=== PATIENT | female | born 1970 | race Hispanic/Latino ===

== ENCOUNTER 2020-10-28 11:02 | Emergency (ER) | payer BC ==
[2020-10-28 11:39] LABS: Absolute Lymphocytes (CBC) 2.2 K/uL (0.7-4.9); Basophils % 0.4 % (0-1.3); Hematocrit 37.6 % (36.0-45.0); Lymphocytes % 20.6 % (15.3-44.8); MPV 7.4 fL (7.6-11.3); RBC Red Blood Cell Count 4.63 M/uL (3.86-4.86)
[2020-10-28] MEDS ORDERED: NA CHLORIDE 0.9% 1,000 ML ONE (11:50)
[2020-10-28] MEDS ORDERED: KETOROLAC 30 MG/ML INJ ONE (11:50)
[2020-10-28] MEDS ORDERED: ONDANSETRON 4 MG/2 ML VIAL ONE (11:50)
[2020-10-28 11:54] LABS: ALT/SGPT 81 U/L (12-78); AST/SGOT 27 U/L (15-37); Albumin 3.5 g/dL (3.4-5.0); Alkaline Phosphatase 133 U/L (45-117); BUN Blood Urea Nitrogen 10 mg/dL (7-18); Bicarbonate 32 mmol/L (21-32); Bilirubin Direct 0.1 mg/dL (0-0.2); Bilirubin Total 0.4 mg/dL (0.2-1.0); Glucose Level 116 mg/dL (74-106); Lipase 68 U/L (73-393); Protein, Total 7.4 g/dL (6.4-8.2); Sodium Level 142 mmol/L (136-145)
--- NOTE | 2020-10-28 12:19 | RAD REPORT ---
EXAM DESCRIPTION: CTAbdomen Pelvis W Contrast - 10/28/2020 11:57 am CLINICAL HISTORY: Abdominal pain. ABD PAIN COMPARISON: No comparisons TECHNIQUE: Biphasic CT imaging of the abdomen and pelvis was performed with 100 ml non-ionic IV cont rast. All CT scans are performed using dose optimization technique as appropriate and may include automated exposure control or mA/KV adjustment according to patient size. FINDINGS: The lung bases are clear. The liver, spleen, pancreas, adrenal glands and kidneys are within normal limits. No bowel obstruction, free air, free fluid or abscess. The appendix is normal. No evidence of signi ficant lymphadenopathy. No suspicious bony findings. 9 cm right adnexal cyst is noted. IMPRESSION: 9 cm right adnexal cyst is present. This is presumably related to the right ovary. Recom mend follow-up pelvic ultrasound for further evaluation.
--- NOTE | 2020-10-28 12:22 | EDPHYS ---
Physician Documentation [facility] Name: Matilda Aguilar Age: 50 yrs Sex: Female : 1970 Arrival Date: 10/28/2020 Time: 11:04 Bed 15 Private MD: [facility] ED Physician Lc Mayers HPI: 10/28 11:55 This 50 yrs old Female presents to ER via Ambulatory with complaints of kb Abdominal Pain. 11:55 The patient presents with abdominal pain. Onset: The symptoms/episode began/occurred 3 kb day(s) ago. The symptoms do not radiate. Associated signs and symptoms: none. The symptoms are described as intermittent. Modifying factors: The symptoms are alleviated by nothing, the symptoms are aggravated by nothing. Severity of pain: At its worst the pain was moderate in the emergency department the pain is unchanged. The patient has not experienced similar symptoms in the past. The patient has not recently seen a physician. Pt reports left abd pain for 3 days.. Historical: - Allergies: :28 No Known Allergies; aa5 - PMHx: 11:28 Diabetes - NIDDM; High Cholesterol; Hypertension; aa5 - PSHx: :28 None; aa5 - Immunization history:: Adult Immunizations unknown. - Social history:: Smoking status: Patient reports the use of cigarette tobacco products, denies chronic smoking, but will smoke occasionally. ROS: 11:54 Constitutional: Negative for fever, chills, and weight loss, Cardiovascular: Negative kb for chest pain, palpitations, and edema, Respiratory: Negative for shortness of breath, cough, wheezing, and pleuritic chest pain, Back: Negative for injury and pain, : Negative for injury, bleeding, discharge, and swelling, MS/Extremity: Negative for injury and deformity, Skin: Negative for injury, rash, and discoloration, Neuro: Negative for headache, weakness, numbness, tingling, and seizure. 11:54 Abdomen/GI: Positive for abdominal pain, Negative for nausea, vomiting, and diarrhea. Exam: 11:54 Constitutional: This is a well developed, well nourished patient who is awake, alert, kb and in no acute distress. Head/Face: Normocephalic, atraumatic. Chest/axilla: Normal chest wall appearance and motion. Nontender with no deformity. No lesions are appreciated. Cardiovascular: Regular rate and rhythm with a normal S1 and S2. No gallops, murmurs, or rubs. Normal PMI, no JVD. No pulse deficits. Respiratory: Lungs have equal breath sounds bilaterally, clear to auscultation and percussion. No rales, rhonchi or wheezes noted. No increased work of breathing, no retractions or nasal flaring. Skin: Warm, dry with normal turgor. Normal color with no rashes, no lesions, and no evidence of cellulitis. MS/ Extremity: Pulses equal, no cyanosis. Neurovascular intact. Full, normal range of motion. Neuro: Awake and alert, GCS 15, oriented to person, place, time, and situation. Cranial nerves II-XII grossly intact. Motor strength 5/5 in all extremities. Sensory grossly intact. Cerebellar exam normal. Normal gait. 11:54 Abdomen/GI: Inspection: abdomen appears normal, Bowel sounds: normal, in all quadrants, Palpation: soft, in all quadrants, moderate abdominal tenderness, in the left lower quadrant. Vital Signs: 11:15 BP 149 / 84; Pulse 64; Resp 18 S; Temp 98.6(O); Pulse Ox 100% on R/A; Weight 113.4 kg aa5 (R); Height 5 ft. 2 in. (157.48 cm) (R); Pain 10/10; 12:18 BP 118 / 53; Pulse 55; Resp 17 S; Pulse Ox 100% on R/A; jd3 13:28 BP 112 / 65; Pulse 59; Resp 18 S; Pulse Ox 100% on R/A; Pain 5/10; aa5 11:15 Body Mass Index 45.73 (113.40 kg, 157.48 cm) aa5 MDM: 11:15 Patient medically screened. kb 11:54 Data reviewed: vital signs, nurses notes. Data interpreted: Pulse oximetry: on room air kb is 100 %. Interpretation: normal. 12:21 Counseling: I had a detailed discussion with the patient and/or guardian regarding: the kb historical points, exam findings, and any diagnostic results supporting the discharge/admit diagnosis, lab results, radiology results, the need for outpatient follow up, a family practitioner, to return to the emergency department if symptoms worsen or persist or if there are any questions or concerns that arise at home. 10/28 11:20 Order name: Basic Metabolic Panel; Complete Time: 11:54 kb 10/28 11:20 Order name: CBC with Diff; Complete Time: 11:44 kb 10/28 11:20 Order name: Hepatic Function; Complete Time: 11:54 kb 10/28 11:20 Order name: Lipase; Complete Time: 11:54 kb 10/28 11:52 Order name: Urine Dipstick--Ancillary (enter results); Complete Time: 12:25 em1 10/28 11:52 Order name: Urine --Ancillary (enter results); Complete Time: 12:25 em1 10/28 11:20 Order name: IV Saline Lock; Complete Time: 11:30 kb 10/28 11:20 Order name: Labs collected and sent; Complete Time: 11:30 kb 10/28 11:20 Order name: Urine Dipstick-Ancillary (obtain specimen); Complete Time: 11:48 kb 10/28 11:20 Order name: CT Abd/Pelvis - IV Contrast Only; Complete Time: 12:21 kb Administered Medications: 11:42 Drug: NS 0.9% 1000 ml Route: IV; Rate: 1000 ml; Site: right antecubital; jd3 13:28 Follow up: IV Status: Completed infusion; IV Intake: 1000ml aa5 11:42 Drug: Zofran (Ondansetron) 4 mg Route: IVP; Site: right antecubital; jd3 13:28 Follow up: Response: No adverse reaction aa5 11:42 Drug: TORadol - Ketorolac 15 mg Route: IVP; Site: right antecubital; jd3 13:28 Follow up: Response: No adverse reaction aa5 Disposition: 16:59 Co-signature as Attending Physician, Lc Mayers MD I agree with the assessment and kdr plan of care. Disposition: 10/28/20 12:22 Discharged to Home. Impression: Abdominal and pelvic pain. - Condition is Stable. - Discharge Instructions: Pelvic Pain, Female, [id number], Abdominal Pain, Adult, [id number]. - Prescriptions for Ibuprofen 800 mg Oral Tablet - take 1 tablet by ORAL route every 8 hours As needed take with food; 30 tablet. - Medication Reconciliation Form, Thank You Letter, Antibiotic Education, Prescription Opioid Use, Work release form form. - Follow up: Emergency Department; When: As needed; Reason: Worsening of condition. Follow up: Private Physician; When: 2 - 3 days; Reason: Recheck today's complaints, Continuance of care, Re-evaluation by your physician. Signatures: Dispatcher [employer] EDEkaterina Goldstein, MANAGER INPATIENT-C MANAGER INPATIENT-Ckb Lc Mayers MD MD kdr Hannah Michael RN RN aa5 Sohail Scruggs RN RN jd3 Corrections: (The following items were deleted from the chart) 13:32 12:22 10/28/2020 12:22 Discharged to Home. Impression: Abdominal and pelvic pain. aa5 Condition is Stable. Forms are Medication Reconciliation Form, Thank You Letter, Antibiotic Education, Prescription Opioid Use. Follow up: Emergency Department; When: As needed; Reason: Worsening of condition. Follow up: Private Physician; When: 2 - 3 days; Reason: Recheck today's complaints, Continuance of care, Re-evaluation by your physician. kb
--- NOTE | 2020-10-28 12:22 | ER ---
Nurse's Notes [facility] Name: Matilda Aguilar Age: 50 yrs Sex: Female : 1970 Arrival Date: 10/28/2020 Time: 11:04 Bed 15 Private MD: Michael Rasmussen Diagnosis: Abdominal and pelvic pain Presentation: 10/28 11:15 Chief complaint: Patient states: LUQ and LLQ pain that began 3 days ago. Pt also c/o aa5 left buttocks pain radiating down left leg. 11:15 Coronavirus screen: At this time, the client does not indicate any symptoms associated aa5 with coronavirus-19. Ebola Screen: Patient negative for fever greater than or equal to 101.5 degrees Fahrenheit, and additional compatible Ebola Virus Disease symptoms. Initial Sepsis Screen: Does the patient meet any 2 criteria? No. Patient's initial sepsis screen is negative. Does the patient have a suspected source of infection? No. Patient's initial sepsis screen is negative. Risk Assessment: Do you want to hurt yourself or someone else? Patient reports no desire to harm self or others. Onset of symptoms was October 2020. 11:15 Method Of Arrival: Ambulatory aa5 11:15 Acuity: RANDY 3 aa5 Historical: - Allergies: 11:28 No Known Allergies; aa5 - PMHx: 11:28 Diabetes - NIDDM; High Cholesterol; Hypertension; aa5 - PSHx: 11:28 None; aa5 - Immunization history:: Adult Immunizations unknown. - Social history:: Smoking status: Patient reports the use of cigarette tobacco products, denies chronic smoking, but will smoke occasionally. Screenin:20 Abuse screen: Denies threats or abuse. Nutritional screening: No deficits noted. jd3 Tuberculosis screening: No symptoms or risk factors identified. Fall Risk Ambulatory Aid- None/Bed Rest/Nurse Assist (0 pts). Gait- Normal/Bed Rest/Wheelchair (0 pts) Mental Status- Oriented to own ability (0 pts). Total Mcqueen Fall Scale indicates No Risk (0-24 pts). Assessment: 11:25 General: Appears in no apparent distress. uncomfortable, Behavior is calm, cooperative, jd3 appropriate for age. Pain: Complains of pain in left lower quadrant Quality of pain is described as aching. Neuro: Level of Consciousness is awake, alert, obeys commands, Oriented to person, place, time, situation. Cardiovascular: Denies chest pain, Capillary refill < 3 seconds Patient's skin is warm and dry. Respiratory: Airway is patent Respiratory effort is even, unlabored, Respiratory pattern is regular, symmetrical, Denies cough, shortness of breath. GI: Abdomen is round non-distended, Abd is soft and non tender X 4 quads. Abdomen is tender to palpation in left upper quadrant and left lower quadrant Reports lower abdominal pain, nausea. : No signs and/or symptoms were reported regarding the genitourinary system. EENT: No signs and/or symptoms were reported regarding the EENT system. Derm: Skin is intact, Skin is dry, Skin is normal, Skin temperature is warm. Musculoskeletal: Circulation, motion, and sensation intact. Range of motion: intact in all extremities. 12:19 Reassessment: Patient appears in no apparent distress at this time. No changes from jd3 previously documented assessment. Patient and/or family updated on plan of care and expected duration. Pain level reassessed. Patient is alert, oriented x 3, equal unlabored respirations, skin warm/dry/pink. 13:30 Reassessment: Patient is alert, oriented x 3, equal unlabored respirations, skin aa5 warm/dry/pink. Patient states feeling better. Vital Signs: 11:15 BP 149 / 84; Pulse 64; Resp 18 S; Temp 98.6(O); Pulse Ox 100% on R/A; Weight 113.4 kg aa5 (R); Height 5 ft. 2 in. (157.48 cm) (R); Pain 10/10; 12:18 BP 118 / 53; Pulse 55; Resp 17 S; Pulse Ox 100% on R/A; jd3 13:28 BP 112 / 65; Pulse 59; Resp 18 S; Pulse Ox 100% on R/A; Pain 5/10; aa5 11:15 Body Mass Index 45.73 (113.40 kg, 157.48 cm) aa5 ED Course: 11:04 Patient arrived in ED. ag5 11:04 Michael Rasmussen DO is Private Physician. ag5 11:07 Ekaterina Roberts [facility]-C [facility] kb 11:07 Lc Mayers MD is Attending Physician. kb 11:15 Arm band placed on Patient placed in an exam room, on a stretcher. aa5 11:22 Sohail Scruggs, RN is Primary Nurse. jd3 11:28 Triage completed. aa5 11:40 Inserted saline lock: 22 gauge in right antecubital area, using aseptic technique. jd3 Blood collected. [facility] battery technician. 11:57 CT Abd/Pelvis - IV Contrast Only In Process Unspecified. EDMS 12:20 Patient has correct armband on for positive identification. Bed in low position. Call jd3 light in reach. Side rails up X 1. Pulse ox on. NIBP on. 13:30 No provider procedures requiring assistance completed. IV discontinued, intact, aa5 bleeding controlled, No redness/swelling at site. Pressure dressing applied. Administered Medications: 11:42 Drug: NS 0.9% 1000 ml Route: IV; Rate: 1000 ml; Site: right antecubital; jd3 13:28 Follow up: IV Status: Completed infusion; IV Intake: 1000ml aa5 11:42 Drug: Zofran (Ondansetron) 4 mg Route: IVP; Site: right antecubital; jd3 13:28 Follow up: Response: No adverse reaction aa5 11:42 Drug: TORadol - Ketorolac 15 mg Route: IVP; Site: right antecubital; jd3 13:28 Follow up: Response: No adverse reaction aa5 Intake: 13:28 IV: 1000ml; Total: 1000ml. aa5 Outcome: 12:22 Discharge ordered by MD. kb 13:30 Discharged to home ambulatory. aa5 13:30 Condition: improved 13:30 Discharge instructions given to patient, Instructed on discharge instructions, follow up and referral plans. medication usage, Demonstrated understanding of instructions, follow-up care, medications, Prescriptions given X 1. 13:32 Patient left the ED. aa5 Signatures: Dispatcher [employer] EDMS Ekaterina Roberts, KOBE-C KOBE-Hannah Good RN RN aa5 Sohail Scruggs, RN RN jd3 Rosa Godfrey ag5 Corrections: (The following items were deleted from the chart) 12:20 12:18 Pulse 55bpm; Resp 17bpm; Spontaneous; Pulse Ox 100% RA; jd3 jd3
[2020-10-28 12:24] LABS: Urine Blood TRACE (NEG); Urine Glucose NEGATIVE (NEG); Urine Protein NEGATIVE (NEG); Urine pH 5.5 (5.0-7.0)
[2020-10-28 13:37] VITALS: TEMP 98.6; O2SAT 100
[2020-10-28 13:38] VITALS: BP 118/53
== END 2020-10-28 13:32 | disposition home or self-care (01) ==
LOC: ER 11:02
DX: R10.9 Unspecified abdominal pain (principal); R10.2 Pelvic and perineal pain; F17.210 Nicotine dependence, cigarettes, uncomplicated
CPT/HCPCS: 96361; 85025; 80048; 36415; 81025; 82565; 80076; 81003; 83690; 74177; 96375; 96374; 99284; Q9967; J7030; J2405

== ENCOUNTER 2022-05-05 12:51 | Emergency (ER) | payer BC ==
--- OUTSIDE RECORDS SUMMARY | 2022-05-05 12:54 | XMS REPORT | Continuity of Care Document ---
:1970 Author Organization [facility] t Address [address] [place] [address] Care Team Providers Name Role Phone Germania Rasmussen Attending Clinician Unavailable THERON GAMBINO Attending Clinician Unavailable Tyshawn Rondon Attending Clinician Unavailable Carmelo Hutchinson DO Attending Clinician Doctor Unassigned, Mil[place] Attending Clinician Unavailable CALLI WELSH Attending Clinician Unavailable Calli Welsh MD Attending Clinician Pob, [facility] Main Attending Clinician Unavailable THERON GAMBINO Admitting Clinician Unavailable GERMANIA RASMUSSEN Admitting Clinician Unavailable Payers Payer Name Policy Type Policy Number Effective Date Expiration Date S talon [employer] [id number] 2020 00:00:00 Problems This patient has no known problems. Allergies, Adverse Reactions, Alerts Allergy Allergy Status Severity Reaction(s) Onset Inactive Treating Comm ents Source Name Type Date Date Clinician No Known DA Active [facility]14 [facility] 00:[facility]: d 00 [facility] No Known DA Active U [facility] Allergie 4-14 [facility] 00:00: d 00 [facility] NO KNOWN Drug Active Univers ALLERGIE Class [facility] Medications Ordered Filled Start Stop Current Ordering Indication Dosage Frequency Signature Comments Components Source Medication Medication Date Date Medication? Clinician (SIG) Name Name MetFORMIN MetFORMIN Yes Germania 2 tabs Common HCl ER HCl ER 09-25 [facility] 00:00: - [facility] Lisinopril Lisinopril Yes Germania 1 tablet Common 12-03 [facility] 00:00: - [facility] Lipitor Lipitor Yes Germania 1 tablet Com mon Rasmussen [facility] Immunizations Ordered Immunization Filled Immunization Date Status Commen ts Source Name Name Afluria single dose Afluria single dose 2019-06-11 Completed [facility] 00:00:00 [facility] Procedures This patient has no known procedures. Encounters Start End Encounter Admission Attending Care Care Encounter Source Date/Time Date/Time Type Type Clinicians Facility Department ID 2022-05-05 Outpatient Rasmussen, [facility] [id number] Common 11:23:00 Germania [facility] 2022-03-03 Outpatient Rasmussen, [facility] [id number] Common 12:54:00 Germania [facility] 2022-03-01 Outpatient Rasmussen, [facility] [id number] Common 10:41:00 Germania [facility] 2022-01-31 Outpatient Rasmussen, [facility] [id number] Common 09:10:04 Germania [facility] 2021-10-12 Outpatient Rasmussen, [facility] [id number] Common 14:27:51 Germania [facility] 2021-10-12 Outpatient Rasmussen, [facility] [id number] Common 14:27:38 Germania [facility] 2021-10-12 Outpatient Rasmussen, [facility] [id number] Common 13:59:50 Germania 81754 [facility] 2021-10-12 Outpatient Rasmussen, [facility] [id number] Common 13:59:31 Germania 42790 [facility] 2021-10-12 Outpatient Rasmussen, [facility] [id number] Common 13:36:45 Germania 30088 [facility] 2021-10-12 Outpatient Rasmussen, [facility] [id number] Common 12:41:10 Germania 58479 [facility] 2021-10-12 Outpatient Rasmussen, [facility] [id number] Common 12:40:48 Germania 31361 [facility] 2021-10-12 Outpatient Rasmussen, [facility] [id number] Common 12:38:17 Germania 30195 [facility] 2021-10-12 Outpatient Rasmussen, [facility] [id number] Common 12:33:51 Germania 51051 [facility] 2021-10-12 Outpatient Rasmussen, [facility] [id number] Common 12:30:54 Germania 80272 [facility] 2021-10-12 Outpatient Rasmussen, [facility] [id number] Common 12:07:39 Germania 81286 [facility] 2021-10-12 Outpatient Rasmussen, [facility] [id number] Common 12:07:05 Germania 72557 [facility] 2021-10-12 Outpatient Rasmussen, [facility] [id number] Common 12:00:36 Germania 00110 [facility] 2021-10-12 Outpatient Rasmussen, [facility] [id number] Common 12:00:33 Germania 57765 [facility] 2021-10-12 Outpatient Rasmussen, [facility] [id number] Common 10:59:12 Germania 18605 [facility] 2021-07-17 Outpatient YAKLANJEL, [employer] [employer] [facility] [id number] Univers 17:41:27 THERON collins [facility] 2020-12-30 Inpatient Nela, [facility] [id number] [facility] 10:00:00 Tyshawn [id number] [facility] 2020-12-29 Inpatient EL Nela, [facility] [id number] [facility] 14:00:[id number] [place] [address] 2022-03-30 2022-03-30 ambulatory [facility] [id number] Common 00:00:00 00:00:00 [facility] 2022-03-01 2022-03-01 ambulatory [facility] [id number] Common 00:00:00 00:00:00 [facility] 2022-02-24 2022-02-24 ambulatory [facility] [id number] Common 00:00:00 00:00:00 [facility] 2022-02-15 2022-02-15 ambulatory [facility] [id number] Common 00:00:00 00:00:00 [facility] 2022-02-14 2022-02-14 ambulatory [facility] [id number] Common 00:00:00 00:00:00 [facility] 2022-01-30 2022-01-30 ambulatory [facility] [id number] Common 00:00:00 00:00:00 [facility] 2021-11-30 2021-11-30 ambulatory [facility] [id number] Common 00:00:00 00:00:00 [facility] 2021-09-07 2021-09-07 ambulatory [facility] [id number] Common 00:00:00 00:00:00 [facility] 2021-09-01 2021-09-01 ambulatory [facility] [id number] Common 00:00:00 00:00:00 [facility] 2021-07-19 2021-07-19 ambulatory [facility] [id number] Common 00:00:00 00:00:00 [facility] 2021-07-18 2021-07-18 ambulatory [facility] [id number] Common 00:00:00 00:00:00 [facility] 2021-07-18 2021-07-18 ambulatory [facility] [id number] Common 00:00:00 00:00:00 [facility] 2021-06-28 2021-06-28 Outpatient [facility] [id number] Common 00:00:00 00:00:00 [facility] 2021-06-28 2021-06-28 Outpatient [facility] [id number] Common 00:00:00 00:00:00 [facility] 2021-04-27 2021-04-27 Outpatient [facility] [id number] Common 00:00:00 00:00:00 [facility] 2021-02-21 2021-02-21 Outpatient R YAJUSTINA, [facility] [id number] Univers 14:30:00 14:30:00 THERON [facility] 2021-02-02 2021-02-02 Outpatient [facility] [id number] Univers 08:00:00 08:00:00 [id number] [facility] 2021-02-02 2021-02-02 Outpatient R [facility] [id number] Univers 08:00:00 08:00:00 y [facility] 2021-01-04 2021-01-04 Outpatient R YAKLIC, [facility] [id number] Univers 13:15:00 13:15:00 THERON [id number] y [facility] 2021-01-04 2021-01-04 Outpatient R YAKLIC, [facility] [id number] Univers 13:15:00 13:15:00 THERON [facility] 2021-01-03 2021-01-03 Outpatient R YAKLIC, [facility] [id number] Univers 13:00:00 13:00:00 THERON [id number] [facility] 2021-01-03 2021-01-03 Outpatient R IMMANUEL [facility] [id number] Univers 13:00:00 13:00:00 THERON [facility] 2020-12-02 2020-12-02 Patient Jasper [facility] [id number] 00:00:00 00:00:00 Outreach Carmelomanuel BARNES [id number] [facility] [id number] COMERIO [id number] 2020-12-02 2020-12-02 Orders Doctor THELMA [id number] 00:00:00 00:00:00 Only Unassigned, RONALD [id number] Milam [facility] [id number] 2020-12-01 2020-12-01 Outpatient [facility] [id number] Common 00:00:00 00:00:00 [facility] 2020-11-29 2020-11-29 Outpatient [facility] [id number] Common 00:00:00 00:00:00 [facility] 2020-11-23 2020-11-23 Outpatient R CALLI WELSH [facility] [id number] Univers 08:30:00 08:30:00 [id number] [facility] 2020-11-23 2020-11-23 Outpatient R CALLI WELSH [facility] [id number] Univers 08:30:00 08:30:00 [facility] 2020-11-18 2020-11-18 Outpatient [facility] [id number] Common 00:00:00 00:00:00 [facility] 2020-11-16 2020-11-16 [facility] Calli Welsh [facility] [id number] 09:10:41 23:59:00 Encounter Annette [id number] Adolfo [id number] Hooper [id number] 2020-11-16 2020-11-16 Outpatient R CALLI WELSH [facility] [id number] Univers 09:45:00 09:45:[facility] 2020-11-16 2020-11-16 Legal Receptionist Rich, Donna [facility] [id number] 09:06:32 09:21:32 Visit Lab Main Annette [id number] Rice [id number] philipumm [id number] [address] 2020-11-16 2020-11-16 Outpatient CALLI PAUL [facility] [id number] Univers 00:00:00 00:00:00 [id number] [facility] 2020-11-10 2020-11-10 Outpatient CALLI PAUL [facility] [id number] Univers 10:00:00 10:00:00 [facility] 2020-11-01 2020-11-01 Outpatient [facility] [id number] Common 00:00:00 00:00:00 [facility] 2020-08-09 2020-08-09 Outpatient [facility] [id number] Common 00:00:00 00:00:00 [facility] 2020-04-30 2020-04-30 [facility] [id number] Common 11:51:00 11:51:[address] [facility] 2020-04-13 2020-04-13 [facility] [id number] Common 08:00:00 08:00:[address] [facility] 2020-04-12 2020-04-12 [facility] [id number] Common 08:56:00 08:56:[address] [facility] 2020-02-10 2020-02-10 [facility] [id number] Common 08:00:00 08:00:[address] [facility] 2019-09-25 2019-09-25 [facility] [id number] Common 08:45:00 08:45:[address] [facility] 2019-09-19 2019-09-19 [facility] [id number] Common 15:12:00 15:12:[address] [facility] 2019-06-11 2019-06-11 [facility] [id number] Common 09:15:00 09:15:[address] [facility] 2019-03-05 2019-03-05 [facility] [id number] Common 08:00:00 08:00:[address] [facility] 2018-12-03 2018-12-03 [facility] [id number] Common 09:00:00 09:00:[address] [facility] 2018-08-20 2018-08-20 [facility] [id number] Common 08:15:00 08:15:[address] [facility] 2018-06-07 2018-06-07 [facility] [id number] Common 09:37:00 09:37:[address] [facility] 2018-06-03 2018-06-03 [facility] [id number] Common 09:37:00 09:37:[address] [facility] 2018-04-17 2018-04-17 [facility] [id number] Common 08:01:00 08:01:[address] [facility] 2018-04-02 2018-04-02 Out[facility] [id number] Common 09:30:00 09:30:[address] [facility] 2018-02-20 2018-02-20 [facility] [id number] Common 15:00:00 15:00:[address] [facility] 2018-02-07 2018-02-07 [facility] [id number] Common 10:30:00 10:30:[address] [facility] 2018-01-17 2018-01-17 Outpatient Keniasimona [facility] [id number] Common 10:00:00 10:00:[address] [facility] 2017-12-10 2017-12-10 Outpatient Darius Dariust [id number] Common 14:30:00 14:30:00 [facility] Results Test Description Test Time Test Comments Results Result Comments Source SURG 2021-01-04 15:52:00 Test Item Value Reference Range Interpretation Commyaron nts SURG RUN (test DATE: 01/04/21 [facility] - LAB PAGE 1 RUN TIME: 1552 Specimen Inquiry RUN USER: code = INTERFACE SURG) LV T: MARIANN TOMAS ACCT #: [id number] LOC: SVITLANA U #: [id number] AGE/SX: 50/F ROOM: RE12/30/20REG DR: Celso Rondon am, MD : 72 BED: DIS: STATUS: [place] [facility] [place]: SPEC #: [id number] RECD: STATUS: JEANETTE RIVERA #: [id number] FABRICE: 12/30/[address]: Tyshawn Rondon MD ENTERED: 12/30/20 SP TYPE: SURG OTHR DR: Mamadou Rasmussen MD ORDERED: SURG PATH LVL 12/17 COPIES TO: Mamadou Green MD [address] [place] [address] [id number] Tyshawn Rondon MD [address] [place], [place] [address] HISTOLOGY: TISSUE ID BLK PCS CHANTAL LEV PROCEDURE DI SPOSITION ____ ___ ___ ___ STOMACH, NOS A 1 2 SIGMOID COLON B 1 2 PROCEDURES: SURG PATH LVL 4 (12/30/20) TISSUES: A. STOMACH, NOS - S MALL HIATAL HERNIA B. SIGMOID COLON - DISTAL SIGMOID COLON POLYP CLINICAL HISTORY MELENA - K9 2.1; PAIN - R10.32; R10.13; GERD - K21.9; R14.0 CPT CODES CPT CODE(S): 51409A4 , , , , , , FINAL DI AGNOSIS A. Stomach, biopsy: MILD CHRONIC GASTRITIS NEGATIVE FOR INTESTINAL METAPLASIA, DYSPL ESSIE, OR MALIGNANCY NEGATIVE FOR HELICOBACTER PYLORI ORGANISMS B. Colon, distal sigmoid, polyp ectomy: COLONIC MUCOSA WITH SMALL LEIOMYOMA CONTINUED ON NEXT PAGE RUN DATE: 01/04/21 [facility] - LAB PAGE 2 RUN TIME: 1552 Specimen Inquiry RUN USER: INTERFACE SPEC #: [facility]:[id number] PATIENT: MARIANN TOMAS #[id number] (Continued) ----- GROSS DESCRIPTION A. S mall hiatal hernia. Received in formalin are two willams tissue fragments, 0.1 and 0.6 cm, all as A. B. Distal sigmoid colon polyp. Received in formalin is a segment of soft willams polypoid tissue, 0.4 x 0 .4 x 0.3 cm. The polyp is marked with ink, bisected and submitted as B. bk/nr Grossing performed at [facility] Pathology, [address], [address], [place] [address]. Medical Directo r: Noé Lewis M.D. MICROSCOPIC DESCRIPTION A. Small hiatal hernia. Sections with mild c hronic inflammation. No dysplasia or malignancy is identified. No evidence of Helicobacter pyl odilon organisms or intestinal metaplasia is seen. B. Distal sigmoid colon polyp. Sections demons trate colonic mucosa with and unremarkable surface is a prominent nodule of spindle cell tissu e with no malignant features. Immunohistochemistry confirms the spindle cells are positive f or smooth muscle actin and negative for S100. These findings are consistent with a small leio myoma. The immunohistochemistry techincal and professional component was performed at: [facility]. See list of stains below: S100, SMA cpt: 53221, [id number] Signed SIGNATURE ON FILE Francisco Patel 01/04/21 155 2 END OF REPORT GLUCOSE BEDSIDE [id number] 08:37:00 Test Item Value Reference Range Interpretation Comments GLUCOSE BEDSIDE TESTING (test code 144 mg/dL 70-110 H = GLUBED) COVID 19 INHOUSE [id number] 15:45:00 Test Item Value Reference Range Interpretation Comments COVID 19 INHOUSE AG NEGATIVE Negative Per tamara narvaez, (test code = negative result s should [id number]) be treated aspr esumptive and, if inconsi stent with clinical signs andsymptoms or necessary for patient man agement, should betested with an alternative mol ecular assay. Negative resultsdo not preclude SA RS-CoV-2 infection and s hould not be usedas the s ole basis for patient man agement decisions. Nega tive results should be considered in t he context of apatient's r ecent exposures, hist ory, presence of cli nicalsigns and symptoms co nsistent with COVID-19. BASIC METABOLIC [id number] 15:43:00 Test Item Value Reference Range Interpretation Comments SODIUM (test code = NA) 139 mmol/L 134-147 N POTASSIUM (test code = 3.5 mmol/L 3.4-5.0 N K) CHLORIDE (test code = 104 mmol/L 100-108 N CL) CARBON DIOXIDE (test 29 mmol/L 21-32 N code = CO2) ANION GAP (test code = 6.0 GAP calc 4.0-15.0 N GAP) GLUCOSE (test code = 145 MG/DL 70-110 H GLU) BLOOD UREA NITROGEN 11 MG/DL 7-18 N (test code = BUN) GLOMERULAR FILTRATION >=60 max estimate >60 RATE (test code = GFR) estGFR CREATININE (test code = 0.6 MG/DL 0.6-1.0 N CREAT) CALCIUM (test code = CA) 9.4 MG/DL 8.5-10.1 N HCG SERUM [id number] 15:43:00 Test Item Value Reference Range Interpretation Comments [facility] SERUM QUAL (test SERUM NEGATIVE SCREEN NEGATIVE code = HCGQL) BASIC METABOLIC [id number] 15:37:00 Test Item Value Reference Range Interpretation Comments SODIUM (test code = NA) mmol/L 134-147 POTASSIUM (test code = K) mmol/L 3.4-5.0 CHLORIDE (test code = CL) mmol/L 100-108 CARBON DIOXIDE (test code = CO2) mmol/L 21-32 ANION GAP (test code = GAP) GAP calc 4.0-15.0 GLUCOSE (test code = GLU) MG/DL 70-110 BLOOD UREA NITROGEN (test code = MG/DL 7-18 BUN) GLOMERULAR FILTRATION RATE (test estGFR >60 code = GFR) CREATININE (test code = CREAT) MG/DL 0.6-1.0 CALCIUM (test code = CA) MG/DL 8.5-10.1 HCG SERUM [id number] 15:37:00 Test Item Value Reference Range Interpretation Comments [facility] SERUM QUAL (test SERUM NEGATIVE SCREEN NEGATIVE code = HCGQL) CBC W/AUTO [id number] 15:25:00 Test Item Value Reference Range Interpretation Comments WHITE BLOOD CELL (test code = 6.1 K/mm3 3.5-11.0 N WBC) RED BLOOD CELL (test code = 4.59 M/mm3 4.70-6.10 L RBC) HEMOGLOBIN (test code = HGB) 12.2 G/DL 10.4-14.9 N HEMATOCRIT (test code = HCT) 39.0 % 31.5-44.1 N MEAN CELL VOLUME (test code = 85.0 Fl 84.5-98.6 N MCV) MEAN CELL HGB (test code = MCH) 26.6 pg 27.0-34.2 L MEAN CELL HGB CONCETRATION 31.3 G/DL 31.5-34.0 L (test code = MCHC) RED CELL DISTRIBUTION WIDTH 13.8 SD 11.5-14.5 N (test code = RDW) PLATELET COUNT (test code = 310 K/mm3 150-450 N PLT) MEAN PLATELET VOLUME (test code 9.10 fL 7.0-10.5 N = MPV) NEUTROPHIL % (test code = NT%) 52.6 % 40-76 N IMMATURE GRANULOCYTE % (test 0.2 % 0.0-5.0 N code = IG%) LYMPHOCYTE % (test code = LY%) 37.2 % 20.5-51.1 N MONOCYTE % (test code = MO%) 6.7 % 1.7-9.3 N EOSINOPHIL % (test code = EO%) 3.1 % 0.0-6.0 N BASOPHIL % (test code = BA%) 0.2 % 0.0-2.0 N NUCLEATED RBC % (test code = 0.0 /100WBC% 0.0-1.0 N NRBC%) NEUTROPHIL # (test code = NT#) 3.2 K/mm3 1.8-7.6 N IMMATURE GRANULOCYTE # (test 0.01 x10 3/uL 0.00-0.03 N code = IG#) LYMPHOCYTE # (test code = LY#) 2.3 K/mm3 0.6-3.2 N MONOCYTE # (test code = MO#) 0.4 K/mm3 0.3-1.1 N EOSINOPHIL # (test code = EO#) 0.2 K/mm3 0.0-0.4 N BASOPHIL # (test code = BA#) 0.0 K/mm3 0.0-0.1 N NUCLEATED RBC # (test code = 0.0 K/mm3 0.0-0.1 N NRBC#) MANUAL DIFF REQUIRED (test code NO DIFF/SCN CRITERIA = MDIFF)
[2022-05-05 13:53] LABS: Urine Blood 3+ (Negative); Urine Glucose Negative (Negative); Urine Protein 3+ (Negative)
--- NOTE | 2022-05-05 14:02 | RAD REPORT ---
EXAM DESCRIPTION: CT - Stone Protocol - 05/05/2022 1:47 pm CLINICAL HISTORY: Abdominal pain. Hematuria. Back pain COMPARISON: 2020 TECHNIQUE: Computed axial tomography of the abdomen pelvis was obtained without oral or IV contrast. Lack of IV and oral contrast limits evaluation of solid organs, appendix, bowel, and vessels. Wilson l reformatted images were obtained and reviewed. All CT scans are performed using dose optimization technique as appropriate and may include automated exposure control or mA/KV adjustment according to patient size. FINDINGS: A renal calculus is not seen. An ureteral calculus is not noted. A bladder calculus is not present. The liver, spleen, pancreas and adrenals appear grossly normal There is no evidence of diverticulitis. The appendix appears normal Small umbilical hernia No adnexal mass IMPRESSION: Negative for a genitourinary calculus
[2022-05-05 14:32] LABS: Urine Bacteria <20 /HPF (<20); Urine RBC >50 /HPF (None Seen)
[2022-05-05 14:52] LABS: Absolute Lymphocytes (CBC) 2.2 K/uL (0.7-4.9); Hematocrit 35.6 % (36.0-45.0); Lymphocytes % 22.7 % (15.3-44.8); MCV 78.2 fL (80-100); MPV 7.2 fL (7.6-11.3); RBC Red Blood Cell Count 4.55 M/uL (3.86-4.86)
[2022-05-05 15:08] LABS: Albumin 3.5 g/dL (3.4-5.0); Bilirubin Total 0.3 mg/dL (0.2-1.0); Potassium 3.9 mmol/L (3.5-5.1); Protein, Total 7.6 g/dL (6.4-8.2)
[2022-05-05] MEDS ORDERED: CEFTRIAXONE 1000 MG/VIAL ONE (16:27)
[2022-05-05] MEDS ORDERED: NA CHLORIDE 0.9% 50 ML ONE (16:27)
--- NOTE | 2022-05-05 17:11 | EDPHYS ---
Physician Documentation [facility] Name: Matilda Aguilar Age: 51 yrs Sex: Female : 1970 Arrival Date: 05/05/2022 Time: 12:52 Bed 11 Private MD: [facility] ED Physician Leonel Calixto HPI: 05/05 13:40 This 51 yrs old Female presents to ER via Ambulatory with complaints of cp Urinary Problem - blood, Pelvic Pain. 13:40 The patient presents with pelvic pain, that is located in/on the suprapubic area, the cp pain radiates to the back, urinary symptoms, frequency, hematuria, urgency. 13:40 Onset: The symptoms/episode began/occurred today. Associated signs and symptoms: cp Pertinent positives: dysuria, Pertinent negatives: constipation, cramping, diarrhea, fever, vaginal bleeding, vomiting. Severity of symptoms: in the emergency department the symptoms are unchanged, despite home interventions. ART CONSERVATOR: 13:25 LMP N/A - Irregular menses bm7 Historical: - Allergies: 13:25 No Known Allergies; bm7 - Home Meds: 13:25 glipizide 5 mg Oral tab 1 tab once daily [Active]; lisinopril 2.5 mg Oral tab 1 tab bm7 once daily [Active]; metformin 500 mg Oral tr24 1 tab once daily [Active]; - PMHx: 13:25 Diabetes - NIDDM; Hypertension; High Cholesterol; bm7 - Immunization history:: Adult Immunizations up to date. - Social history:: Patient/guardian denies using tobacco products, Smoking status: Patient denies any tobacco usage or history of. ROS: 13:45 Constitutional: Negative for body aches, chills, fever, poor PO intake. cp 13:45 Eyes: Negative for injury, pain, redness, and discharge. cp 13:45 ENT: Negative for drainage from ear(s), ear pain, sore throat, difficulty swallowing, difficulty handling secretions. 13:45 Cardiovascular: Negative for chest pain, edema, palpitations. 13:45 Respiratory: Negative for cough, shortness of breath, wheezing. 13:45 Abdomen/GI: Positive for abdominal pain, Negative for vomiting, diarrhea, constipation. 13:45 Back: Positive for radiated pain. 13:45 : Positive for urinary symptoms, hematuria, Negative for vaginal bleeding. 13:45 Neuro: Negative for altered mental status, headache, syncope, weakness. 13:45 All other systems are negative. Exam: 13:50 Constitutional: The patient appears in no acute distress, alert, awake, non-toxic, well cp developed, well nourished, obese. 13:50 Head/Face: Normocephalic, atraumatic. cp 13:50 Eyes: Periorbital structures: appear normal, Conjunctiva: normal, no exudate, no injection, Sclera: no appreciated abnormality, Lids and lashes: appear normal, bilaterally. 13:50 ENT: External ear(s): are unremarkable, Nose: is normal, Mouth: Lips: moist, Oral mucosa: pink and intact, moist, Posterior pharynx: Airway: no evidence of obstruction, patent. 13:50 Chest/axilla: Inspection: normal. 13:50 Cardiovascular: Rate: normal, Rhythm: regular, Edema: is not appreciated, JVD: is not appreciated. 13:50 Respiratory: the patient does not display signs of respiratory distress, Respirations: normal, no use of accessory muscles, no retractions, labored breathing, is not present, Breath sounds: are clear throughout, no decreased breath sounds, no stridor, no wheezing. 13:50 Abdomen/GI: Inspection: obese Bowel sounds: active, all quadrants, Palpation: soft, in all quadrants, mild abdominal tenderness, in the suprapubic area, rebound tenderness, is not appreciated. 13:50 Back: CVA tenderness, is absent. 13:50 Neuro: Orientation: to person, place \T\ time. Mentation: is normal, Motor: moves all fours, strength is normal, Gait: is steady. Vital Signs: 13:25 BP 124 / 66; Pulse 66; Resp 16; Temp 97.0(TE); Pulse Ox 100% on R/A; Weight 120.2 kg bm7 (R); Height 5 ft. 2 in. (157.48 cm); Pain 4/10; 13:25 Body Mass Index 48.47 (120.20 kg, 157.48 cm) bm7 MDM: 14:00 Differential diagnosis: dysmenorrhea, menorrhea, urinary tract infection, kidney stone. cp 16:14 Patient medically screened. cp 17:10 Data reviewed: vital signs, nurses notes, lab test result(s), radiologic studies, CT cp scan. 17:10 Counseling: I had a detailed discussion with the patient and/or guardian regarding: the cp historical points, exam findings, and any diagnostic results supporting the discharge/admit diagnosis, lab results, radiology results, to return to the emergency department if symptoms worsen or persist or if there are any questions or concerns that arise at home. 17:10 Response to treatment: the patient's symptoms have markedly improved after treatment, cp and as a result, I will discharge patient. 05/05 13:32 Order name: CBC with Diff; Complete Time: 16:12 05/05 16:12 Interpretation: Normal except: HGB 11.8; HCT 35.6; MCV 78.2; MCH 25.9; RDW 15.6; MPV cp 7.2. 05/05 13:32 Order name: CMP; Complete Time: 16:12 05/05 16:12 Interpretation: Normal except: ALK 174; GLOB 4.1; A/G 0.9. 05/05 13:32 Order name: Lipase; Complete Time: 16:12 05/05 13:32 Order name: Urine Microscopic Only; Complete Time: 16:12 05/05 16:12 Interpretation: Normal except: UWBC 21-50; URBC >50. 05/05 13:54 Order name: Urine Dipstick-Ancillary; Complete Time: 16:12 [facility] 05/05 14:34 Order name: Urine Culture [facility] 05/05 13:32 Order name: IV Saline Lock; Complete Time: 14:04 05/05 13:32 Order name: Labs collected and sent; Complete Time: 14:04 05/05 13:32 Order name: Urine Dipstick-Ancillary (obtain specimen); Complete Time: 14:20 05/05 13:32 Order name: Urine Test (obtain specimen); Complete Time: 16:16 05/05 13:32 Order name: CT Stone Protocol; Complete Time: 16:12 cp Administered Medications: 16:21 Drug: Rocephin (cefTRIAXone) 1 grams Route: IV; Rate: calculated rate; Site: right bm7 antecubital; 16:54 Follow up: Response: No adverse reaction; IV Status: Completed infusion; IV Intake: [id number] Disposition Summary: 05/05/22 17:10 Discharge Ordered Location: Home cp Problem: new cp Symptoms: have improved cp Condition: Stable cp Diagnosis - UTI/ Urinary tract infection, site not specified cp Followup: cp - With: Private Physician - When: 2 - 3 days - Reason: Recheck today's complaints Discharge Instructions: - Discharge Summary Sheet cp - Urinary Tract Infection, Adult cp Forms: - Medication Reconciliation Form cp - Thank You Letter cp - Antibiotic Education cp - Prescription Opioid Use cp Prescriptions: - cefpodoxime 200 mg Oral Tablet - take 1 tablet by ORAL route every 12 hours for 7 days with food; 14 tablet; cp Refills: 0, Product Selection Permitted - Pyridium 200 mg Oral Tablet - take 1 tablet by ORAL route every 8 hours for 2 days; 6 tablet; Refills: 0, cp Product Selection Permitted - Ibuprofen 800 mg Oral Tablet - take 1 tablet by ORAL route every 8 hours As needed take with food; 30 tablet; cp Refills: 0, Product Selection Permitted Signatures: Dispatcher [employer] EDLeonel Reese PA PA cp McCarthy, Brittany, RN RN bm7 Luba Alves RN RN kb3
--- NOTE | 2022-05-05 17:11 | ER ---
Nurse's Notes [facility] Name: Matilda Aguilar Age: 51 yrs Sex: Female : 1970 Arrival Date: 05/05/2022 Time: 12:52 Bed 11 Private MD: Michael Rasmussen Diagnosis: UTI/ Urinary tract infection, site not specified Presentation: 05/05 13:21 Chief complaint: Patient's son or daughter states: When she goes to use the restroom 7 shes been having blood in her urine and pain in her back since earlier. She went to the doctor today and they gave her a shot for her pain and they told her to come the ER because she could have a serious infection. Coronavirus screen: At this time, the client does not indicate any symptoms associated with coronavirus-19. Ebola Screen: No symptoms or risks identified at this time. Initial Sepsis Screen: Does the patient meet any 2 criteria? No. Patient's initial sepsis screen is negative. Does the patient have a suspected source of infection? No. Patient's initial sepsis screen is negative. Risk Assessment: Do you want to hurt yourself or someone else? Patient reports no desire to harm self or others. Onset of symptoms was May 05, 2022. Care prior to arrival: doctors appt. 13:21 Method Of Arrival: Ambulatory [facility] 13:21 Acuity: RANDY 3 bm7 Triage Assessment: 13:25 General: Appears in no apparent distress. uncomfortable, obese, Behavior is calm, bm7 cooperative. Pain: Complains of pain in back Pain radiates to groin and suprapubic area. EENT: No deficits noted. No signs and/or symptoms were reported regarding the EENT system. Neuro: No deficits noted. Cardiovascular: No deficits noted. Respiratory: No deficits noted. Reports. GI: No deficits noted. No signs and/or symptoms were reported involving the gastrointestinal system. : Reports vaginal bleeding that is bright red. Derm: No deficits noted. No signs and/or symptoms reported regarding the dermatologic system. Musculoskeletal: No deficits noted. No signs and/or symptoms reported regarding the musculoskeletal system. 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 - Social history:: Patient/guardian denies using tobacco products, Smoking status: Patient denies any tobacco usage or history of. Screenin:25 Abuse screen: Denies threats or abuse. Denies injuries from another. Nutritional kb3 screening: No deficits noted. Tuberculosis screening: No symptoms or risk factors identified. Fall Risk None identified. Vital Signs: 13:25 BP 124 / 66; Pulse 66; Resp 16; Temp 97.0(TE); Pulse Ox 100% on R/A; Weight 120.2 kg bm7 (R); Height 5 ft. 2 in. (157.48 cm); Pain 4/10; 13:25 Body Mass Index 48.47 (120.20 kg, 157.48 cm) bm7 ED Course: 12:52 Patient arrived in ED. am2 12:52 Michael Rasmussen DO is Private Physician. am2 13:12 Leonel Mercedes PA is PHCP. cp 13:12 Leonel Calixto MD is Attending Physician. cp 13:25 Triage completed. bm7 13:25 Arm band placed on right wrist. bm7 13:48 CT Stone Protocol In Process Unspecified. EDMS 14:04 CBC with Diff Sent. kc6 14:04 CMP Sent. kc6 14:04 Lipase Sent. kc6 14:04 Inserted saline lock: 20 gauge in right antecubital area, using aseptic technique. kc6 Blood collected. 16:14 Luba Alves, RN is Primary Nurse. kb3 17:25 Patient has correct armband on for positive identification. Bed in low position. Side kb3 rails up X 1. 17:25 No provider procedures requiring assistance completed. IV discontinued, intact, kb3 bleeding controlled, No redness/swelling at site. Administered Medications: 16:21 Drug: Rocephin (cefTRIAXone) 1 grams Route: IV; Rate: calculated rate; Site: right bm7 antecubital; 16:54 Follow up: Response: No adverse reaction; IV Status: Completed infusion; IV Intake: [id number] Medication: 17:27 VIS not applicable for this client. kb3 Intake: 16:54 IV: 50ml; Total: 50ml. kb3 Outcome: 17:10 Discharge ordered by . juan pablo 17:25 Condition: good kb3 17:25 Discharge instructions given to patient, Instructed on discharge instructions, follow up and referral plans. medication usage, Demonstrated understanding of instructions, follow-up care, medications, Prescriptions given X 3. 17:27 Discharged to home ambulatory. kb3 17:27 Patient left the ED. kb3 Addendum: 05/08/2022 15:16 Addendum: Culture Results: Positive urine culture. Phone call Attempt #1 called to s s follow up with patient. Spoke with daughter who states that patient is feeling much better and is awaiting for PCP to call her back to make follow up appointment. Signatures: Dispatcher [employer] EDDanielle Stephens RN RN ss Leonel Mercedes PA PA cp Moreno, Amanda am2 Kimmie Brown, RN RN bm7 Alee Ramsey kc6 Luba Alves, RN RN kb3
[2022-05-05 19:53] VITALS: BP 124/66; TEMP 97; O2SAT 100
== END 2022-05-05 17:27 | disposition home or self-care (01) ==
LOC: ER 12:51
DX: N39.0 Urinary tract infection, site not specified (principal)
CPT/HCPCS: 36415; 74176; 76377; 80053; 81003; 81015; 83690; 85025; 87077; 87086; 87088; 87186; 96365; 99284